=== PATIENT | female | born 1960 | race African-American/Black ===

== ENCOUNTER → 2016-12-22 | Outpatient (CLI) | payer OTHER ==
[2015-10-19 07:59] VITALS: BP 138/90
[~2016-12-22] MED LIST: AMLO5TAB2 PO; ESOM40CA PO; POTA10TA12 PO; POTA20TA12 PO; PROAIR HFA8.5 GM IH; SIMV40TA3 PO; TRIA1CAP3 PO; VALIUM10 MG PO
--- NOTE | 2016-12-22 15:14 | RAD ---
DATE: 12/22/2016 EXAM: DIGITAL SCREEN BILAT W/CAD HISTORY: Routine screening COMPARISON: 12/21/2015 This study was interpreted with the benefit of Computerized Aided Detection (CAD). The breast parenchyma shows scattered fibroglandular densities. Breast parenchyma level B. FINDINGS: A faint nodular opacity in the lateral aspect of the right breast is unchanged. No new or enlarging breast densities are seen. Several faint scattered microcalcifications are noted. No suspicious microcalcifications are seen. IMPRESSION: Stable mammograms without evidence of malignancy. BI-RADS CATEGORY: 2 BENIGN FINDING(S) RECOMMENDED FOLLOW-UP: 12M 12 MONTH FOLLOW-UP PQRS compliance statement: Patient information was entered into a reminder system with a target due date for the next mammogram. Mammography is a sensitive method for finding small breast cancers, but it does not detect them all and is not a substitute for careful clinical examination. A negative mammogram does not negate a clinically suspicious finding and should not result in delay in biopsying a clinically suspicious abnormality. "Our facility is accredited by the [employer] Mammography Program."
== END | disposition home or self-care (01) ==
LOC: MAMMO 09:18
PROVIDERS: ATTEND Internal Medicine
DX: Z12.31 Encounter for screening mammogram for malignant neoplasm of breast (principal)
CPT/HCPCS: G0202; 77067

== ENCOUNTER → 2017-04-29 | Outpatient (CLI) | payer OTHER ==
[2015-10-19 07:59] VITALS: BP 138/90
--- NOTE | 2017-04-30 11:21 | RAD ---
APPROVED REPORT Test Type: Pharmacological Stress Nurse/Tech: Chantel Lynne R.N. Test Indications: dyspnea Cardiac History: htn, smoker Medications: see ehr Medical History: see ehr Resting ECG: SR Resting Heart Rate: 55 bpm Resting Blood Pressure: 135/87mmHg Pretest Chest Pain: No chest pain Nurse/Tech Notes Lungs cta, heart tones regular, good radial pulse Consent: The procedure was explained to the patient in lay terms. Informed consent was witnessed. Jermaine eout was entered into [employer]. History and Stress Test performed by ESTEFANÍA Tejada, MAGDALENO (R) (N) Pharm. Details Pharmacologic stress testing was performed using 0.4mg per 5ml of regadenoson given intravenously ove r 7-10 seconds. Stress Symptoms No chest pain or symptoms. POST EXERCISE Reason for Termination: Infusion complete Target HR: No Max HR: 90 bpm Max Blood Pressure: 133/72mmHg Chest Pain: No. Arrhythmia: No. ST Change: No. T wave inversion in lateral leads that resolved during recovery INTERPRETATION Stress EKG Conclusion: Baseline EKG showed sinus rhythm. No ischemic changes at peak stress. No arr hythmias. Imaging Protocol IMAGE PROTOCOL: Rest Tc-99m/stress Tc-99m 2 days Rest: Stress: Viability: Radiopharm.Tc99m YqumvxjqwRp91d Sestamibi Cgej92jZa 35mCi Img Date 04/29/2017 04/30/2017 Inj-Img Jawb59kjo. 60min. Rest Admin Site:IV - Right AntecubitalAdministrator:DANTE Grande Stress Admin Site: IV - Right AntecubitalAdministrator: ESTEFANÍA Tejada, LAITHT (R)(N) STRESS DATA End Diast. Vol.115.0mlAv. Heart Rate73.0bpm End Syst. Vol.41.0mlCO Index BSA5.4L/min Myocardial Gvxh966.0gEject. Yxpiwklk29.0% Stress Rates Pk. Fill Rate3.18EDV/secLVtime Pk. Fill 246.85msec Pk. Empty Rate3.10ESV/secLVtime Pk. Cpggh733.72msec 06/03 Pk. Fill0.72EDV/sec Stress Scores Regional WT1.00Summed WT9.00 Regional WM0.00Summed WM1.00 Study quality was good. Left Ventricular size was Normal at Rest and Stress. Lung uptake was Normal. Left Ventricular ejection fraction is 64%. The rest and stress images show normal perfusion, normal contraction and thickening. LV Perf. Quant 17 Seg. SSS0.00 17 Seg. SRS3.00 17 Seg. SDS0.00 Stress Defect Extent (% LAD)0.00Rest Defect Extent (% LAD)13.10Rev. Defect Extent (% LAD)0.00 Stress Defect Extent (% LCX) 0.00Rest Defect Extent (% LCX)0.00Rev. Defect Extent (% LCX)0.00 Stress Defect Extent (% RCA)0.00Rest Defect Extent (% RCA)0.00Rev. Defect Extent (% RCA)0.00 Stress Defect Extent (% INEZ)0.00Rest Defect Extent (% INEZ)5.00Rev. Defect Extent (% INEZ)0.00 Conclusion 1. Regadenoson cardioisotope stress test did not show any evidence of ischemia or infarct. 2. Normal left ventricular systolic function with ejection fraction calculated at 64%. 3. Low risk for cardiac events.
== END | disposition home or self-care (01) ==
LOC: ECHO 07:41
PROVIDERS: ATTEND Internal Medicine Cardiovascular Disease
DX: I49.5 Sick sinus syndrome (principal); I10 Essential (primary) hypertension; R06.09 Other forms of dyspnea; Z87.891 Personal history of nicotine dependence
CPT/HCPCS: 78452; 93306; 96374; 96375; A9500; 93017; 96376

== ENCOUNTER → 2018-01-04 | Outpatient (CLI) | payer OTHER | END | disposition home or self-care (01) | LOC: MAMMO 08:50 | DX: Z12.31 Encounter for screening mammogram for malignant neoplasm of breast (principal); I11.0 Hypertensive heart disease with heart failure; I50.32 Chronic diastolic (congestive) heart failure; E78.5 Hyperlipidemia, unspecified; Z87.891 Personal history of nicotine dependence | CPT/HCPCS: 77067 ==

== ENCOUNTER → 2018-04-16 | Outpatient (CLI) | payer OTHER ==
[2015-10-19 07:59] VITALS: BP 138/90
[~2018-04-16] MED LIST changes: -AMLO5TAB2 PO; +AMLO5TAB7 PO; +GADOBUTROL 10 MMOL/10 ML VIAL IV ONE
--- NOTE | 2018-04-16 12:16 | RAD ---
MRI Brain with and without contrast History: Macroadenoma Technique: Multiplanar, multi sequential pre and postcontrast MR imaging was performed of the brain. Comparison: December 28, 2008 Findings: There is persistent focus of nonenhancement of the sella with associated T2 hyperintense signal although overall decreased in size, now primarily involving the right aspect of the sella with slight extent to the left of the midline. This now measures about 1.2 cm transverse by 0.8 cm CC by 0.9 cm AP. Previously this measured about 1.6 cm transverse by 0.9 cm CC by 1 cm AP and previously extended more to the left. There is again mild deviation of the infundibulum to the left which is less displaced on this exam than previously. There is no new intracranial abnormality. There is again minimal T2 and FLAIR hyperintense signal of the supratentorial parenchyma greatest of the bilateral periatrial white matter right greater than left, also a few tiny foci of the deep white matter overall similar. There is no nodular parenchymal or leptomeningeal enhancement. There is preservation of the major intracranial flow-voids at the skull base. The cerebellar tonsils are normal in location. There is patchy iqfs-yo-tlytyorx ethmoid air cell mucosal thickening, also minimally of the maxillary sinuses greater on the right and also minimally of the right sphenoid sinus. There is mild bilateral frontal sinus mucosal thickening. Findings were present previously, somewhat decreased mucosal thickening of the ethmoid air cells in the interval. The mastoid air cells are aerated. There is preserved marrow signal of the clivus. Impression: 1. There is persistent focus of nonenhancing T2 hyperintense signal of the sella although different morphology than previously with decreased mass effect as well as displacement of the infundibulum, overall smaller in size and now primarily more greatly affecting the right aspect of the sella. 2. There is similar minimal T2 and FLAIR hypertense signal of the supratentorial white matter, nonspecific findings possibly due to chronic microvascular ischemic disease, no abnormal intracranial enhancement. 3. There is paranasal sinus mucosal thickening as stated, present previously although somewhat decreased of the ethmoid air cells in interval. Electronically signed by: Faustino Warren MD (04/16/2018 12:13 PM) [id number]
--- NOTE | 2018-04-16 12:17 | RAD ---
Indication: Liver hemangioma. No symptoms. TECHNIQUE: MRI of the abdomen with in and out of phase, axial without and with fat sat T2-weighted images, axial diffusion-weighted images, coronal T2 fat sat, axial T1-weighted image sequences were obtained. After infusion of contrast, axial T1-weighted image sequences were obtained at multiple intervals. COMPARISON: FINDINGS: Heart is normal in size. No pericardial or pleural effusion. Clear lung bases. The liver is normal in morphology without hepatic steatosis. There is a 8 mm T2 hyperintense/T1 hypointense arterially enhancing lesion in the segment 4A of the liver (series 4 image 9) compatible with flash filling hemangioma. There is a segment 6 subcapsular 1.9 x 1.4 cm arterially enhancing wedge-shaped focus without T1 or T2 correlates most likely perfusion anomaly. No other liver lesions seen. Spleen is within normal limits. No gallstones or pericholecystic fluid. Diffuse fatty infiltration is seen in the pancreas. No focal pancreatic lesion. Main pancreatic duct is not dilated. No intra or extrahepatic biliary duct dilation. Adrenal glands demonstrate no nodularity. No hydronephrosis. 1.4 cm simple cyst is seen in the right kidney. No suspicious renal lesion. No enlarged retroperitoneal adenopathy. No bowel obstruction. No enhancing bone lesion. IMPRESSION: 1. Small hemangioma in segment 4A. No suspicious liver lesion. Electronically signed by: Fuad Danielle DO (04/16/2018 12:14 PM) [id number]
== END | disposition home or self-care (01) ==
LOC: MRI 10:13
PROVIDERS: ATTEND Internal Medicine
DX: D35.2 Benign neoplasm of pituitary gland (principal); D18.03 Hemangioma of intra-abdominal structures
CPT/HCPCS: 70553; 74183; A9585

== ENCOUNTER → 2018-12-14 | Outpatient (CLI) | payer OTHER ==
[2015-10-19 07:59] VITALS: BP 138/90
[~2018-12-14] MED LIST changes: +ALBU2.5V8 IH; +AMLO5TAB10 PO; -AMLO5TAB7 PO; -GADOBUTROL 10 MMOL/10 ML VIAL IV ONE; -PROAIR HFA8.5 GM IH
--- NOTE | 2018-12-14 13:35 | CARD ---
MR#: [id number] Date of Study: 12/14/2018 Ordering Physician: MARTY PUCKETT, Referring Physician: MARTY PUCKETT, Tech: Mariely Mirza NANCY APPROVED REPORT EXAM: Two-dimensional and M-mode echocardiogram with Doppler and color Doppler. Other Information Quality : AverageHR: 66bpm Rhythm : NSR INDICATION Hypertension/HCVD 2D DIMENSIONS RVDd3.2 (2.9-3.5cm)Left Atrium(2D)3.4 (1.6-4.0cm) IVSd1.3 (0.7-1.1cm)Aortic Root(2D)3.0 (2.0-3.7cm) LVDd5.0 (3.9-5.9cm)LVOT Diameter1.8 (1.8-2.4cm) PWd1.1 (0.7-1.1cm)LVDs3.1 (2.5-4.0cm) FS (%) 38.5 %SV80.4 ml LVEF(%)65.0 (>50%) M-Mode DIMENSIONS Left Atrium(MM)3.65 (2.5-4.0cm)Aortic Root3.51 (2.2-3.7cm) Aortic Valve AoV Peak Marko.154.0cm/sAoV VTI32.0cm AO Peak GR.9.5mmHgLVOT Peak Marko.113.2cm/s AO Mean GR.5mmHgAVA (VMAX)1.86cm2 FRANNY (VTI)1.90cm2 Mitral Valve MV E Fohsnofr11.0cm/sMV DECEL ZBXP261op MV A Ikkrbxux93.5cm/sE/A Ratio0.8 Pulmonary Valve PV Peak Kqdsyvfa79.1cm/s Tricuspid Valve TR P. Wupaawmd914xf/sRAP FAFBMKXP8seDa TR Peak Gr.30caDtKNML98fsVb Pulmonary Vein S1 Jsrdokeq64.0cm/sD2 Cisfsxti56.4cm/s PVa pwtiptdp59bfwb LEFT VENTRICLE The left ventricle is normal size. There is mild concentric left ventricular hypertrophy. The left ve ntricular systolic function is normal. The Ejection Fraction is 60-65%. There is normal LV segmental wall motion. Transmitral Doppler flow pattern is Grade I-abnormal relaxation pattern. RIGHT VENTRICLE The right ventricle is normal size. There is normal right ventricular wall thickness. The right ventr icular systolic function is normal. ATRIA The left atrium size is normal. The right atrium size is normal. The interatrial septum is intact wit h no evidence for an atrial septal defect or patent foramen ovale as noted on 2-D or Doppler imaging. AORTIC VALVE The aortic valve is normal in structure and function. The aortic valve is trileaflet. Doppler and Col or Flow revealed no significant aortic regurgitation. There is no significant aortic valvular stenosi s. There is no aortic valvular vegetation. MITRAL VALVE The mitral valve is normal in structure and function. There is no evidence of mitral valve prolapse. There is no mitral valve stenosis. Doppler and Color-flow revealed trace mitral regurgitation. TRICUSPID VALVE The tricuspid valve is normal in structure and function. Doppler and Color Flow revealed trace tricus pid regurgitation. The PA pressure was estimated at 32 mmHg. There is no tricuspid valve prolapse or vegetation. There is no tricuspid valve stenosis. PULMONIC VALVE The pulmonary valve is normal in structure and function. Doppler and Color Flow revealed no pulmonic valvular regurgitation. There is no pulmonic valvular stenosis. GREAT VESSELS The aortic root is normal in size. The ascending aorta is normal in size. The IVC is normal in size a nd collapses >50% with inspiration. PERICARDIAL EFFUSION There is no evidence of significant pericardial effusion. Critical Notification Critical Value: No <Conclusion> The left ventricular systolic function is normal. The Ejection Fraction is 60-65%. There is normal LV segmental wall motion. Transmitral Doppler flow pattern is Grade I-abnormal relaxation pattern. Trace mitral regurgitation. Trace tricuspid regurgitation. The PA pressure was estimated at 32 mmHg. There is no evidence of significant pericardial effusion. Signed by : Marco A Fowler, Electronically Approved : 12/14/2018 13:34:48
== END | disposition home or self-care (01) ==
LOC: ECHO 09:01
PROVIDERS: ATTEND Internal Medicine Cardiovascular Disease
DX: I51.7 Cardiomegaly (principal); I25.118 Atherosclerotic heart disease of native coronary artery with other forms of angina pectoris
CPT/HCPCS: 93306

== ENCOUNTER 2019-02-10 09:06 | Emergency (ER) | payer OTHER ==
[~2019-02-10] VITALS: Ht 162.6 cm; Wt 122.5 kg
[2019-02-10 09:20] VITALS: BP 155/79
[2019-02-10] MEDS ORDERED: DEXAMETHASONE 4 MG TABLET PO STA (09:35)
[2019-02-10] MEDS ORDERED: GUAI600T47 PO (09:36)
--- NOTE | 2019-02-10 09:37 | PHYS DOC ---
Past Medical History Past Medical History: Bipolar, Bronchitis, CHF, Depression, High Cholesterol, Hypertension, Schizophrenia, Other Additional Past Medical Histor: tumor to brain; hernia; hepatitis C; former drug user, CHRONIC BACK PAIN Past Surgical History: Hysterectomy, Tubal ligation Alcohol Use: None Drug Use: None Adult General Chief Complaint Chief Complaint: Congestion HPI HPI Patient is a 58 year old female that presents with sinus congestion has been ongoing for week. Associated symptoms include sinus pressure in her maxillary sinuses. The patient has not tried any treatments at home for this. Denies Cough. Denies any fevers. Denies any pain. Review of Systems Review of Systems Constitutional: Denies fever or chills [] Eyes: Denies change in visual acuity, redness, or eye pain [] HENT: Reports nasal congestion and sinus pressure. Respiratory: Denies cough or shortness of breath [] Cardiovascular: No additional information not addressed in HPI [] GI: Denies abdominal pain, nausea, vomiting, bloody stools or diarrhea [] : Denies dysuria or hematuria [] Musculoskeletal: Denies back pain or joint pain [] Integument: Denies rash or skin lesions [] Neurologic: Denies headache, focal weakness or sensory changes [] Endocrine: Denies polyuria or polydipsia [] Complete systems were reviewed and found to be within normal limits, except as documented in this note. Allergies Allergies Allergies Coded Allergies Type Severity Reaction Last Updated Verified amoxicillin Adverse Reaction Intermediate nausea 05/03/14 No Physical Exam Physical Exam Constitutional: Well developed, well nourished, no acute distress, non-toxic appearance. [] HENT: Normocephalic, atraumatic, bilateral external ears normal, oropharynx moist, no oral exudates, nose normal. Sinus tenderness. Eyes: PERRLA, EOMI, conjunctiva normal, no discharge. [] Neck: Normal range of motion, no tenderness, supple, no stridor. [] Cardiovascular:Heart rate regular rhythm, no murmur [] Lungs & Thorax: Bilateral breath sounds clear to auscultation [] Abdomen: Bowel sounds normal, soft, no tenderness, no masses, no pulsatile masses. [] Skin: Warm, dry, no erythema, no rash. [] Back: No tenderness, no CVA tenderness. [] Extremities: No tenderness, no cyanosis, no clubbing, ROM intact, no edema. [] Neurologic: Alert and oriented X 3, normal motor function, normal sensory function, no focal deficits noted. [] Psychologic: Affect normal, judgement normal, mood normal. [] EKG EKG [] Radiology/Procedures Radiology/Procedures [] Course & Med Decision Making Course & Med Decision Making Pertinent Labs and Imaging studies reviewed. (See chart for details) The patient appears to have a sinus infection. Will give a steroid in the ER (Dexamethasone). Also recommended the patient drink plenty of fluid. Discussed with patient about taking Mucinex and Flonase. The patient asked if I could write a script for Mucinex and I agreed. The patient has Flonase at home and states she has saline solution at home. Recommended patient use this as well. Dragon Disclaimer Dragon Disclaimer This electronic medical record was generated, in whole or in part, using a voice recognition dictation system. Departure Departure Impression: Primary Impression: Sinusitis Disposition: HOME, SELF-CARE Condition: STABLE Referrals: BING FERGUSON MD (PCP) SUGEY ELAINE MD Patient Instructions: Sinusitis Additional Instructions: Thank you for visiting [facility]. We appreciate you trusting us with your care. If any additional problems come up don't hesitate to return to visit us. Please follow up with your primary care provider so they can plan additional care if needed and know about the problem that you had. If symptoms worsen come back to the Emergency Department. Any concerning symptoms that start such as chest pain, shortness of air, weakness or numbness on one side of the body, running high fevers or any other concerning symptoms return to the ER. Please fill your medications at any pharmacy and follow the prescription instructions. As we discussed you can also try Flonase and Saline solution at home. If symptoms continue please follow up with ENT. Scripts Guaifenesin (MUCINEX) 600 Mg Tablet.er 1 TAB PO BID PRN for CONGESTION, #20 TAB Prov: WARREN VINES APRN 02/10/19 Problem Qualifiers Primary Impression: Sinusitis Sinusitis location: maxillary Chronicity: acute Recurrence: recurrent Qualified Codes: J01.01 - Acute recurrent maxillary sinusitis WARREN VINES APRN Feb 10, 2019 09:37
== END 2019-02-10 09:45 | disposition home or self-care (01) ==
LOC: ER 09:06
DX: J01.01 Acute recurrent maxillary sinusitis (principal); E78.00 Pure hypercholesterolemia, unspecified; I11.0 Hypertensive heart disease with heart failure; I50.9 Heart failure, unspecified; F31.9 Bipolar disorder, unspecified; F20.9 Schizophrenia, unspecified; G89.29 Other chronic pain; Z90.710 Acquired absence of both cervix and uterus; Z98.51 Tubal ligation status; Z88.1 Allergy status to other antibiotic agents
CPT/HCPCS: 99282

== ENCOUNTER → 2019-04-18 | Outpatient (CLI) | payer OTHER ==
[~2019-04-18] MED LIST changes: +GUAI600T47 PO; +SIMV40TA18 PO; -SIMV40TA3 PO
--- NOTE | 2019-04-18 12:43 | RAD ---
DATE: 04/18/2019. EXAM: DIGITAL SCREEN BILAT W/CAD. HISTORY: Routine mammographic screening. COMPARISON: 01/04/2018. This study was interpreted with the benefit of Computerized Aided Detection (CAD). FINDINGS: Breast Density: SCATTERED The breast parenchyma shows scattered fibroglandular densities. Breast parenchyma level B.. There are no suspicious masses, microcalcifications or architectural distortion. Scattered calcifications are benign. The parenchymal pattern is stable. BI-RADS CATEGORY: 2 BENIGN FINDING(S). RECOMMENDED FOLLOW-UP: 12M 12 MONTH FOLLOW-UP. PQRS compliance statement: Patient information was entered into a reminder system with a target due date 04/18/2020 for the next mammogram. Mammography is a sensitive method for finding small breast cancers, but it does not detect them all and is not a substitute for careful clinical examination. A negative mammogram does not negate a clinically suspicious finding and should not result in delay in biopsying a clinically suspicious abnormality. "Our facility is accredited by the [employer] Mammography Program."
== END | disposition home or self-care (01) ==
LOC: MAMMO 13:14
PROVIDERS: ATTEND Internal Medicine
DX: Z12.31 Encounter for screening mammogram for malignant neoplasm of breast (principal); N64.89 Other specified disorders of breast
CPT/HCPCS: 77067

== ENCOUNTER → 2020-04-23 | Outpatient (CLI) | payer OTHER ==
[~2020-04-23] MED LIST changes: +AMLO-186 PO; -AMLO5TAB10 PO; -POTA10TA12 PO; +POTASSIUM CHLO10 ME1 PO
--- NOTE | 2020-04-24 08:32 | RAD ---
DATE: 04/23/2020 8:02 AM EXAM: MAMMO GLEN SCREENING BILATERAL HISTORY: Screening COMPARISON: 04/18/2019, 12/22/2016 Bilateral CC and MLO views of the breasts were performed. Bilateral breast tomosynthesis was performed in CC and MLO projections. This study was interpreted with the benefit of Computerized Aided Detection (CAD). FINDINGS: Breast Density: SCATTERED The breast parenchyma shows scattered fibroglandular densities. Breast parenchyma level B No suspicious masses, microcalcifications or architectural distortion is present to suggest malignancy in either breast. The visualized axillae are unremarkable. IMPRESSION: No mammographic evidence of malignancy. BI-RADS CATEGORY: 1 NEGATIVE RECOMMENDED FOLLOW-UP: 12M 12 MONTH FOLLOW-UP Annual screening mammography is recommended, unless clinically indicated sooner based on symptoms or change in physical exam. PQRS compliance statement: Patient information was entered into a reminder system with a target due date for the next mammogram. Mammography is a sensitive method for finding small breast cancers, but it does not detect them all and is not a substitute for careful clinical examination. A negative mammogram does not negate a clinically suspicious finding and should not result in delay in biopsying a clinically suspicious abnormality. "Our facility is accredited by the [employer] Mammography Program."
== END ==
LOC: MAMMO 07:49
PROVIDERS: ATTEND Internal Medicine
DX: Z12.31 Encounter for screening mammogram for malignant neoplasm of breast (principal)
CPT/HCPCS: 77063; 77067

== ENCOUNTER → 2020-11-27 | Outpatient (CLI) | payer MEDICARE, MEDICAID ==
--- NOTE | 2020-11-27 12:44 | CARD ---
MR#: [id number] Date of Study: 11/27/2020 Ordering Physician: LANI FOWLER, Referring Physician: Ileana COULTER: Bernardino Carrero [facility] APPROVED REPORT EXAM: Two-dimensional and M-mode echocardiogram with Doppler and color Doppler. Other Information Quality : AverageHR: 82bpm Rhythm : NSR INDICATION Dyspnea RISK FACTORS Hypertension Obesity Hyperlipidemia Smoking 2D DIMENSIONS Left Atrium(2D)3.8 (1.6-4.0cm)IVSd1.3 (0.7-1.1cm) Aortic Root(2D)3.3 (2.0-3.7cm)LVDd4.6 (3.9-5.9cm) LVOT Diameter1.8 (1.8-2.4cm)PWd1.3 (0.7-1.1cm) LVDs2.5 (2.5-4.0cm)FS (%) 44.9 % SV74.2 mlLVEF(%)76.3 (>50%) Aortic Valve AoV Peak Marko.171.5cm/sAoV VTI34.4cm AO Peak GR.11.8mmHgLVOT Peak Marko.126.7cm/s AO Mean GR.6mmHgAVA (VMAX)1.94cm2 Mitral Valve MV E Aukawzks15.0cm/sMV E Peak Gr.3mmHg MV DECEL [id number] A Kblilldp55.3cm/s MV E Mean Gr.1mmHgE/A Ratio0.6 Pulmonary Valve PV Peak Rgjqfdwa60.1cm/s Tricuspid Valve TR P. Pizuniyu493lq/sTR Peak Gr.9mmHg Pulmonary Vein S1 Nuewaokp23.3cm/sD2 Zjwipyaq28.0cm/s LEFT VENTRICLE The left ventricle is normal size. There is mild to moderate concentric left ventricular hypertrophy. The left ventricular systolic function is normal. The ejection fraction is 60%. There is normal LV s egmental wall motion. Transmitral Doppler flow pattern is Grade I-abnormal relaxation pattern. No lef t ventricle thrombus noted on this study. There is no ventricular septal defect visualized. There is no left ventricular aneurysm. There is no mass noted in the left ventricle. RIGHT VENTRICLE The right ventricle is normal size. There is normal right ventricular wall thickness. The right ventr icular systolic function is normal. ATRIA The left atrium is mildly dilated. The right atrium size is normal. The interatrial septum is intact with no evidence for an atrial septal defect or patent foramen ovale as noted on 2-D or Doppler imagi ng. AORTIC VALVE The aortic valve is normal in structure and function. Doppler and Color Flow revealed no significant aortic regurgitation. There is no significant aortic valvular stenosis. There is no aortic valvular v egetation. MITRAL VALVE The mitral valve is normal in structure and function. There is no evidence of mitral valve prolapse. There is no mitral valve stenosis. Doppler and Color-flow revealed trace mitral regurgitation. TRICUSPID VALVE The tricuspid valve is normal in structure and function. Doppler and Color Flow revealed trace tricus pid regurgitation. There is no tricuspid valve prolapse or vegetation. There is no tricuspid valve st enosis. PULMONIC VALVE Doppler and Color Flow revealed no pulmonic valvular regurgitation. There is no pulmonic valvular kacie nosis. GREAT VESSELS The aortic root is normal in size. The ascending aorta is normal in size. The pulmonary artery is nor mal. The IVC is normal in size and collapses >50% with inspiration. PERICARDIAL EFFUSION There is no pleural effusion. There is no evidence of significant pericardial effusion. Critical Notification Critical Value: No <Conclusion> The left ventricular systolic function is normal. The ejection fraction is 60%. There is normal LV segmental wall motion. Transmitral Doppler flow pattern is Grade I-abnormal relaxation pattern. Trace mitral regurgitation. Trace tricuspid regurgitation. There is no evidence of significant pericardial effusion. Signed by : Lani Fowler, Electronically Approved : 11/27/2020 12:44:14
== END ==
LOC: ECHO 07:33
PROVIDERS: ATTEND Internal Medicine Cardiovascular Disease
DX: I11.9 Hypertensive heart disease without heart failure (principal); R06.09 Other forms of dyspnea
CPT/HCPCS: 93306

== ENCOUNTER → 2021-01-08 | Outpatient (CLI) | payer MEDICARE, MEDICAID ==
[~2021-01-08] MED LIST changes: +REGADENOSON 0.4 MG/5 ML DISP.SYRIN. IV ONE
--- NOTE | 2021-01-09 16:25 | RAD ---
MR#: [id number] Date of Study: 01/09/2021 Ordering Physician: LANI RICCI, Referring Physician: MARYAN COULTER Tech: RT Bruno Earl) (N) APPROVED REPORT Test Type: Pharmacological Stress Nurse/Tech: Krissy Pacheco RN Test Indications: Dyspnea on exertion Cardiac History: CHF, HTN, See EMR. Medications: See EMR. Medical History: x-Smoker=quit 20yrs ago, Brain tumor=left side, See EMR. Resting ECG: SR Resting Heart Rate: 72 bpm Resting Blood Pressure: 169/94mmHg Pretest Chest Pain: No chest pain Nurse/Tech Notes Lungs CTA, Heart tones regular. Consent: The procedure was explained to the patient in lay terms. Informed consent was witnessed. Jermaine eout was entered into [employer]. History and Stress Test performed by RT Daysi (R) (N) Pharm. Details Pharmacologic stress testing was performed using 0.4mg per 5ml of regadenoson given intravenously ove r 7-10 seconds. Stress Symptoms No chest pain or symptoms. POST EXERCISE Reason for Termination: Infusion complete Max HR: 105 bpm Max Blood Pressure: 167/91mmHg Blood Pressure response to exercise: Normal blood pressure response during stress. Heart Rate response to exercise: WNL Chest Pain: No. Arrhythmia: No. ST Change: No. INTERPRETATION Stress EKG Conclusion: Baseline EKG showed sinus rhythm. No ischemic changes at peak stress. No arr hythmias. Imaging Protocol IMAGE PROTOCOL: Rest Tc-99m/stress Tc-99m 2 days Rest: Stress: Viability: Radiopharm.Tc99m OdhkvqdfgTg94m Sestamibi [id number] 32.3mCi Duration 15min. 15min. Img Date 01/08/2021 01/09/2021 Inj-Img [id number]. 60min. Rest Admin Site:IV - Right AntecubitalAdministrator:RT Bruno Tavarez)(N) Stress Admin Site: IV - Left AntecubitalAdministrator: RT Daysi (Nilsa)(N) STRESS DATA End Diast. Vol.105.0mlAv. Heart Rate85.0bpm End Syst. Vol.31.0mlCO Index BSA0.0L/min Myocardial Qcoa009.0gEject. Olsmnqsz67.0% Stress Rates Pk. Fill Rate3.33EDV/secLVtime Pk. Fill 161.53msec Pk. Empty Rate4.04ESV/secLVtime Pk. Varli831.75msec 1/3 Pk. Fill1.23EDV/sec Stress Scores Regional WT1.00Summed WT10.00 Regional WM0.00Summed WM0.00 Study quality was good. Left Ventricular size was Normal at Rest and Stress. Lung uptake was . Left Ventricular ejection fraction is 70%. The rest and stress images show normal perfusion, normal contraction and thickening. LV Perf. Quant 17 Seg. SSS0.00 17 Seg. SRS1.00 17 Seg. SDS0.00 Stress Defect Extent (% LAD)0.00Rest Defect Extent (% LAD)0.00Rev. Defect Extent (% LAD)0.00 Stress Defect Extent (% LCX) 0.00Rest Defect Extent (% LCX)0.00Rev. Defect Extent (% LCX)0.00 Stress Defect Extent (% RCA)0.00Rest Defect Extent (% RCA)0.00Rev. Defect Extent (% RCA)0.00 Stress Defect Extent (% INEZ)0.00Rest Defect Extent (% INEZ)0.00Rev. Defect Extent (% INEZ)0.00 Conclusion 1. Regadenoson cardioisotope stress test did not show any evidence of ischemia or infarct. 2. Normal left ventricular systolic function with ejection fraction calculated at 70%. 3. Low risk for cardiac events. Signed by : Lani Ricci, Electronically Approved : 01/09/2021 16:25:29
== END ==
LOC: NM 07:57
PROVIDERS: ATTEND Internal Medicine Cardiovascular Disease
DX: R40.0 Somnolence (principal)
CPT/HCPCS: 78452; A9500; 93017; J2785

== ENCOUNTER → 2021-09-19 | Outpatient (CLI) | payer MEDICARE, OTHER ==
[~2021-09-19] MED LIST changes: -REGADENOSON 0.4 MG/5 ML DISP.SYRIN. IV ONE
--- NOTE | 2021-09-19 10:21 | RAD ---
EXAMINATION: MG BILAT SCREEN+GLEN CLINICAL HISTORY: Screening TECHNIQUE: Digital craniocaudal and mediolateral oblique views of the bilateral breasts obtained with 3-D tomosynthesis. COMPARISON: 04/23/2020, 04/18/2019, 01/04/2018, 12/22/2016, 12/21/2015 BREAST COMPOSITION: There are scattered areas of fibroglandular density. FINDINGS: No evidence of suspicious mass, calcifications, or areas of architectural distortion. IMPRESSION: No mammographic evidence of malignancy. BI-RADS ASSESSMENT: Category 1: Negative RECOMMENDATION: Return for routine bilateral screening mammogram in one year. Patient information is entered into the reminder system with a target due date for the next screening mammogram. "Our facility is accredited by the [employer] Mammography Program." Electronically signed by: Geovany Olivares DO (09/19/2021 10:19 AM) [id number]
== END ==
LOC: MAMMO 08:51
PROVIDERS: ATTEND Internal Medicine
DX: Z12.31 Encounter for screening mammogram for malignant neoplasm of breast (principal)
CPT/HCPCS: 77063; 77067